=== PATIENT | male | born 1985 | race African-American/Black ===

== ENCOUNTER 2018-10-02 12:37 | Inpatient (IN) | payer OTHER ==
[~2018-10-02] VITALS: Ht 180.3 cm; Wt 86.7 kg
[2018-10-02 13:00] VITALS: BP 124/67
--- NOTE | 2018-10-02 13:00 | NUR ---
ADMISSION NOTES RECEIVED PATIENT DIRECT ADMIT ON MED/SURG FOR CLINICAL [facility]. PATIENT 33Y/OLD MALE. PATIENT A/O X4, NO ACUTE RESPIRATORY DISTRESS, LUNGS ARE CLEAR DURING AUSCULTATION, UNLABORED. V/S TAKEN T-98.2, P-71, R-18, BP-124/67, O2-100 RA. PATIENT STABLE REFUSED HALLUCINATION, REFUSED SI/HI/AVH AT THIS TIME. SKIN ASSESSMENT DONE INTACT. PATIENT AMBULATORY USING BATHROOM. NEEDS ATTENDED AND ANTICIPATED. Dr LOW AWARE OF NEW PATIENT AND MEDICATION. CALL LIGHT WITHIN TO REACH. CONTINUED MONITORING.
[2018-10-02] MEDS ORDERED: ACET-73 PO (15:57)
[2018-10-02] MEDS ORDERED: MAG355OR18 PO (15:57)
[2018-10-02] MEDS ORDERED: MAGN400O21 PO (15:57)
[2018-10-02] MEDS ORDERED: OLAN20TA3 PO (15:57)
[2018-10-02] MEDS ORDERED: IBUP-1953 PO (15:57)
[2018-10-02] MEDS ORDERED: OLAN5TAB3 PO (15:57)
[2018-10-02] MEDS ORDERED: LORA1TAB PO (15:57)
[2018-10-02] MEDS ORDERED: OLAN10TA3 PO (15:57)
[2018-10-02] MEDS ORDERED: ZOLP10TA6 PO (15:57)
[2018-10-02 16:00] VITALS: BP 124/67
[2018-10-02] MEDS ORDERED: IBUPROFEN 200 MG TABLET PO PRN (16:30)
[2018-10-02] MEDS ORDERED: MAG HYDROX/AL HYDROX/SIMETH 30 ML UDC PO PRN (16:30)
[2018-10-02] MEDS ORDERED: MAGNESIUM HYDROXIDE 30 ML UDC PO PRN (16:30)
[2018-10-02] MEDS ORDERED: ACETAMINOPHEN ES 500 MG TABLET PO PRN (16:30)
--- NOTE | 2018-10-02 17:00 | NUR ---
RN NOTES PATIENT IN THE ROOM EATING, INTRODUCED SMOKING SCHEDULE PER UNIT PROTOCOL. PATIENT VERBALIZED UNDERSTANDING. CONTINUED MONITORING.
--- NOTE | 2018-10-02 18:42 | NUR ---
RN NOTES PATIENT STABLE EATING DINNER, NO ACUTE DISTRESS, CALL LIGHT WITHIN TO REACH. SAFETY PRECAUTION MAINTAINED ALL THE TIME. ENDORSED ONCOMING NURSE FOR PLAN OF CARE.
[2018-10-02 20:00] VITALS: BP 122/74
--- NOTE | 2018-10-02 20:00 | NUR ---
MS/RN OPENING NOTES RECEIVED PATIETN IN BED, ABLE TO VERBALIZE NEEDS, ALERT, ORIENTED X3, RESPIRATIONS EVEN AND UNLABORED ON CLINICAL TRIAL AND REQUESTED FOR SLEEP MED AND MEDICATION ORDERED FOR THE NIGHT, ZYPREXA. NO S/S OF CHANGES IN BEHAVIOR, COOPERTAIVE TO CARE, REQUESTED FOR SNACKS, DISCUSSED SMOKKING CESSATION AND STATED MAY CONSIDER, WILL MONITOR AND ATTEND TO PATIENTS NEEDS.
--- NOTE | 2018-10-02 20:20 | NUR ---
MS/RN NOTES PATIENT WITH CONCENT ORDER TO SMOKE AT SCHEDULED TIME, TANK MAKER WOOD ASSISTED PATIENT FOR SAFETY.
[2018-10-02] MEDS ORDERED: ZYPREXA 20 MG PO SCH (22:00)
[2018-10-03] MEDS: ZOLPIDEM TARTRATE 10 MG TABLET PO PRN (00:53)
--- NOTE | 2018-10-03 00:54 | NUR ---
MS/RN NOTES PATIENT REQUESTING FOR SLEEPING PILL UNABLE TO SLEEP.WILL MONITOR.
--- NOTE | 2018-10-03 06:17 | NUR ---
MS/RN NOTES REQUESTED DOUBLE PORTION EVERY MEAL COMMUNICATED WITH DIETARY GRACY, SHOWER REQUEST AND ABLE TO DO SELF CARE WITH SUPERVISION, SMOKE BREAK REQUEST FOLLOW AFTER
--- NOTE | 2018-10-03 06:32 | NUR ---
[id number].RN NOTES RECEIVED PATIENT IN BED, ALERT, ORIENTED, ON CLINICAL TRIAL, BRANNON MONITOR, AMBULATORY , UNABLE TO SLEEP AND HAD PRN MEDICATION, GIVEN WILL MONITOR.
--- NOTE | 2018-10-03 07:24 | NUR ---
MSRN TRIAL. PT RECEIVED IN ELEVATOR RETURNING FROM SCHEDULED SMOKE TIME. PT A&0X3, PT REPORTS FEELING BUGS CRAWLING ON HIS SKIN WHICH IS NORMAL FOR HIM, HE DENIES SI, TSH OR OTHER PSYCHIATRIC SYMPTOMS AT THIS TIME. PT WITHOUT IVC. ROOM CHECKED FOR SAFETY, PT BRIEFED ON POC AND IS WITHOUT CONCERN OR COMPLAINT AT THIS TIME. WILL CONTINUE POC.
[2018-10-03 08:00] VITALS: BP 123/89
[2018-10-03] MEDS: LORAZEPAM 1 MG TABLET FOR AGITATION PO PRN (10:08)
--- NOTE | 2018-10-03 11:00 | NUR ---
MSRN. PT REPORTED ANX, PRN ADMINISTERED WITH GOOD EFFECT, PT RESTING COMFORTABLE.
[2018-10-03 16:00] VITALS: BP 125/75
--- NOTE | 2018-10-03 18:31 | NUR ---
MSRN TRIAL. PT REMAINS A&0X3 RELAXING WITH T.V. PT TOLERATING ROOM AIR AND DENIES PSYCHIATRIC SYMPTOMS, DISTRESS OR DISCOMFORT AT THIS TIME. PT WITHOUT IVC. ROOM CHECKED FOR SAFETY AT EACH CARE INTERACTION. ALL DAY NURSE DUTIES ATTENDED TO AND PT IS WITHOUT CONCERN OR COMPLAINT AT THIS TIME. WILL ENDORSE TO NIGHT NURSE AT BEDSIDE FOR RENEE.
[2018-10-03 20:00] VITALS: BP 116/68
[2018-10-03] MEDS: ZYPREXA 20 MG PO SCH (21:05)
--- NOTE | 2018-10-04 06:13 | NUR ---
MS RN NOTES AWAKE & RESPONSIVE. NOT IN ANY DISTRESS. NO SOB NOTED. DENIES ANY PAIN OR DISCOMFORT AT THIS TIME. PT SLEPT FOR 7 HRS. CALL LIGHT WITHIN REACH. BED IN LOWEST POSITION. SR UP X2 FOR SAFETY. WILL ENDORSE TO NEXT SHIFT.
--- NOTE | 2018-10-04 07:06 | NUR ---
MS RN NOTES PATIENT IN BED ALERT ORIENTED X 3. DENIED ANY PAIN. NO ACUTE DISTRESS NOTED. BREATHING UNLABORED. NO SOB NOTED. SAFETY MEASURES IN PLACE. CALL LIGHT WITHIN REACH. WILL CONTINUE TO MONITOR ACCORDINGLY.
--- NOTE | 2018-10-04 07:06 | NUR ---
MS VIRAJ NOTES PATIENT IN BED ALERT ORIENTED X 3. NO ACUTE DISTRESS NOTED. BREATHING UNLABORED. NO SOB NOTED. IV ACCESS PATENT AND INTACT, NO REDNESS OR SWELLING NOTED. SAFETY MEASURES IN PLACE. CALL LIGHT WITHIN REACH. WILL CONTINUE TO MONITOR ACCORDINGLY. Addendum: 10/04/18 at 1458 by MEGHA DURAN RN disregard above notes, wrong patient
[2018-10-04 09:38] VITALS: BP 138/84
[2018-10-04 16:34] VITALS: BP 122/84
--- NOTE | 2018-10-04 19:00 | NUR ---
MS RN NOTES RECEIVE PT IN BED A/O X 3, NO PAIN AT THIS TIME. IN STABLE CONDITION, NOT IN DISTRESS, SAFETY MEASURES IN PLACE. WILL CONTINUE TO MONITOR. PT FRUSTRATED AT THIS TIME BECUASE HE SAID HE DID GET HIS MAYONNAISE EARLIER. OFFERED HIM IF I COULD GET ANYTHING HE SAID HE'S OK NOW.
--- NOTE | 2018-10-04 19:00 | NUR ---
MS RN NOTES PATIENT IN BED ALERT ORIENTED X 3. NO ACUTE DISTRESS NOTED. BREATHING UNLABORED. NO SOB NOTED.DENIED ANY PAIN.NEEDS ATTENDED AND ANTICIPATED. KEPT CLEAN DRY AND COMFORTABLE.SAFETY MEASURES IN PLACE. CALL LIGHT WITHIN REACH. ENDORSED TO NIGHT NURSE FOR CONTINUITY OF CARE.
[2018-10-04 20:00] VITALS: BP 101/49
[2018-10-04 20:54] VITALS: BP 101/49
[2018-10-04] MEDS: ZYPREXA 20 MG PO SCH (21:11)
--- NOTE | 2018-10-05 06:18 | NUR ---
MS RN CLOSING NOTES REMAINS STABLE. NOT IN DISTRESS. NO PSYCHIATRIC INSTABILITY. KEPT CLEAN AND DRY AND COMFORTABLE, NEEDS ATTENDED AND ANTICIPATED. ON LOW BED AT ALL TIMES TO ENSURE SAFETY. SAFE HAZARD FREE ENVIRONMENT PROVIDED. CALL LIGHT WITHIN EASY TO REACH. WILL ENDORSE NEXT SHIFT CONTINUITY OF CARE.
--- NOTE | 2018-10-05 07:05 | NUR ---
MS RN NOTES PATIENT IN BED ALERT ORIENTED X 3. NO ACUTE DISTRESS NOTED. BREATHING UNLABORED. NO SOB NOTED. DENIED ANY PAIN. SAFETY MEASURES IN PLACE. CALL LIGHT WITHIN REACH. WILL CONTINUE TO MONITOR ACCORDINGLY.
[2018-10-05 08:00] VITALS: BP 129/82
[2018-10-05 16:00] VITALS: BP 132/78
--- NOTE | 2018-10-05 19:00 | NUR ---
MS RN NOTES PATIENT IN BED ALERT ORIENTED X3. NO ACUTE DISTRESS NOTED. BREATHING UNLABORED. NO SOB NOTED. DENIED ANY PAIN AT THIS TIME. DUE MEDICATIONS GIVEN, NO ASE NOTED. NEEDS ATTENDED AND ANTICIPATED. KEPT CLEAN, DRY AND COMFORTABLE. SAFETY MEASURES IN PLACE. CALL LIGHT WITHIN REACH. ENDORSED TO NIGHT NURSE FOR CONTINUITY OF CARE.
--- NOTE | 2018-10-05 19:07 | NUR ---
VIRAJ MS OPENING NOTES RECEIVED PATIENT IN BED AWAKE ALERT AND ORIENTED X4 , RESPIRATIONS EVEN AND UNLABORED WITH EQUAL RISE AND FALL OF CHEST, DENIES ANY PAIN OR DISCOMFORT AT THIS TIME, ORIENTED TO STAFF AND CALL LIGHT, AND KEPT WITHIN REACH, SAFETY PRECAUTIONS IN PLACE, LOW BED AND LOCKED, ALL NEEDS ATTENDED AT THIS TIME, WILL CONTINUE TO MONITOR AND ATTEND TO NEEDS. Addendum: 10/06/18 at 0646 by PRISCILA DEAN RN DUPLICATE DISREGARD
--- NOTE | 2018-10-05 19:10 | NUR ---
RN MS OPENING NOTES RECEIVED PATIENT AWAKE ALERT AND ORIENTED X4, ABLE TO MAKE NEEDS KNOWN, RESPIRATIONS EVEN AND UNLABORED WITH EQUAL RISE AND FALL OF CHEST, DENIES ANY PAIN OR DISCOMFORT AT THIS TIME, NO IV ACCESS MD AWARE, ORIENTED TO STAFF AND CALL LIGHT, FLUIDS AND SNACKS OFFERED, ALL NEEDS ATTENDED AT THIS TIME, WILL CONTINUE TO MONITOR AND ATTEND TO NEEDS.
[2018-10-05 20:00] VITALS: BP 125/69
[2018-10-05] MEDS: ZYPREXA 20 MG PO SCH (21:05)
[2018-10-05] MEDS: ZOLPIDEM TARTRATE 10 MG TABLET PO PRN (21:13)
--- NOTE | 2018-10-05 21:13 | NUR ---
RN MS NOTES PATIENT REQUESTING FOR AMBIEN AMBIEN PRN GIVEN ORDERED WILL CONTINUE TO MONITOR FOR EFFECTIVENESS.
--- NOTE | 2018-10-06 06:46 | NUR ---
VIRAJ MS CLOSING NOTES PATIENT SLEEPING BUT EASILY AROUSABLE ALERT AND ORIENTED X4, ABLE TO MAKE NEEDS KNOWN, RESPIRATIONS EVEN AND UNLABORED WITH EQUAL RISE AND FALL OF CHEST, DENIES ANY PAIN OR DISCOMFORT AT THIS TIME, NO IV ACCESS MD AWARE, CALL LIGHT KEPT WITHIN REACH , FLUIDS AND SNACKS OFFERED, ALL NEEDS ATTENDED AT THIS TIME, WILL CONTINUE TO MONITOR AND ENDORSE TO NEXT SHIFT, PATIENT WAS AWAKE FOR MOST OF THE SHIFT , NOTED FELL ASLEEP AROUND 530AM PATIENT WAS OFFERED ATIVAN FOR ANXIETY AND PATIENT REFUSED STATED " IT WOUND HELP ME ILL BE FINE". Addendum: 10/06/18 at 0651 by PRISCILA DEAN RN NO SI/HI.
[2018-10-06 08:00] VITALS: BP 128/88
--- NOTE | 2018-10-06 08:00 | NUR ---
RN NOTES RECEIVED PATIENT IN THE HALLWAY, A/O X4, PATIENT WANTED TO GO FOR SMOKING. PATIENT STABLE HAS NO ACUTE RESPIRATORY DISTRESS, V/S STABLE. PATIENT DENIED SI/HI AT THIS TIME, NO COMPACTING OF PAIN. PATIENT STATE 'HE DOES NOR SLEPT MOST OF THE NIGHT TIME AND NOT FEEL SLEEPY NOW". SAFETY PRECAUTION MAINTAINED ALL THE TIME.
[2018-10-06 16:00] VITALS: BP 130/62
[2018-10-06] MEDS: LORAZEPAM 1 MG TABLET FOR AGITATION PO PRN (17:21)
--- NOTE | 2018-10-06 17:21 | NUR ---
RN NOTES PATIENT ANXIOUS AT THIS TIME BECAUSE OF NOT HAVING CIGARETTE, IRRITABLE, AND NOT GET ENOUGH SLEEP LAST NIGHT. PATIENT DECIDED TO GO HOME , AND PATIENT STATE " I DO NOT NEED CLINICAL TRIAL NOW". CALLED DR LOW AND NOTIFIED ABOUT PATIENT CONDITION. Dr. LOW SPOKE TO THE PATIENT BY PHONE AND PATIENT AGREES TO STAY. GET VERBAL TO ORDER GIVE PATIENT ATIVAN NOW PRESCRIBED, AND TAKE HIM TO OUTSIDE TO SMOKE. ORDER TAKEN AND CARRIED OUT.
--- NOTE | 2018-10-06 17:21 | NUR ---
RN NOTES ADMINISTERED ATIVAN 1 MG PO PRN PRESCRIBED, V/S TAKEN BP-130/62, P-70. ENCOURAGED PATIENT TO EXPRESS FEELINGS AND CONCERNS. SAFETY PRECAUTION MAINTAINED ALL THE TIME.
--- NOTE | 2018-10-06 18:30 | NUR ---
RN NOTES PATIENT STABLE, MEDICATION WERE ADMINISTERED FOR ANXIETY EFFECTIVE, V/S STABLE. PATIENT COOPERATIVE, REDIRECTABLE. ENDORSED ONCOMING NURSE FOR PLAN OF CARE.
--- NOTE | 2018-10-06 19:40 | NUR ---
RN MS OPENING NOTES RECEIVED PT SITTING UP IN CHAIR, TALKING TO FRIEND, PT IS ALERT ORIENTED X4. BREATHING EVEN AND UNLABORED ON RA, IN NO APPARENT DISTRESS, NO COMPLAINT OF PAIN OR DISCOMFORT. PT PART OF CLINICAL TRIAL, NO UV ACCESS. SKIN REMAINS INTACT. BED LINENS CHANGED, LOWEST LOCKED POSITION, CALL LIGHT WITHIN REACH AT ALL TIME. WILL CONTINUE TO MONITOR
[2018-10-06 20:00] VITALS: BP 127/76
[2018-10-06] MEDS: ZYPREXA 20 MG PO SCH ×2 (22:00→22:12)
[2018-10-06] MEDS ORDERED: OLANZAPINE 5 MG TABLET ONE (22:30)
[2018-10-06] MEDS: ZOLPIDEM TARTRATE 10 MG TABLET PO PRN (22:35)
--- NOTE | 2018-10-07 06:09 | NUR ---
RN MS CLOSING NOTES. PT REMAINS IN BED, SLEEPING, EASILY AROUSED TO NAME CALL, BREATHING EVEN AND UNLABORED ON ROOM AIR, NO SOB OR CONGESTION. NO IV ACCESS, PT ON CLINICAL TRIAL. NO SIGNIFICANT CHANGE IN CONDITION DURING SHIFT. BED IN LOWEST LOCKED POSITION, CALL LIGHT WITHIN REACH AT ALL TIMES. WILL ENDORSE TO DAY NURSE FOR RENEE
--- NOTE | 2018-10-07 07:25 | NUR ---
RN OPENING NOTE PATIENT IS ALERT AND ORIENTED x4. NO FACIAL GRIMACING NOTED FOR PAIN. NO SOB OR DISTRESS NOTED ON ROOM AIR TOLERATING WELL. ABLE TO COMMUNICATE NEEDS. NO IV ACCESS PER MD. BRP. REGULAR DIET. NO LABS THIS MORNING. CALL LIGHT WITHIN REACH. SAFETY MEASURES IMPLEMENTED. WILL CONTINUE CARE
[2018-10-07 08:00] VITALS: BP 130/86
--- NOTE | 2018-10-07 08:26 | NUR ---
RN NOTE PATIENT WENT DOWN FOR SMOKE BREAK WITH OPERATING TABLE ASSEMBLER AT THIS TIME. WILL CONTINUE CARE WHEN PATIENT RETURNS TO UNIT
--- NOTE | 2018-10-07 08:40 | NUR ---
MS RN NOTE PATIENT BACK FROM SMOKE BREAK AND RETURNED TO UNIT WITH SCALEMAN. CURRENTLY IN ROOM AT [facility] UNIT TIME. WILL CONTINUE TO MONITOR
--- NOTE | 2018-10-07 10:30 | NUR ---
MS RN NOTE PATIENT WENT OUT FOR SMOKE BREAK WITH DISASTER RESPONSE DIRECTOR. WILL CONTINUE CARE WHEN PATIENT RETURNS TO UNIT
--- NOTE | 2018-10-07 10:40 | NUR ---
MS RN NOTE PATIENT BACK FROM SMOKE BREAK. IN ROOM IN BED AT THIS TIME
[2018-10-07 16:00] VITALS: BP 131/72
--- NOTE | 2018-10-07 18:39 | NUR ---
RN CLOSING NOTE PATIENT IS ALERT AND ORIENTED x4. NO FACIAL GRIMACING NOTED FOR PAIN. NO SOB OR DISTRESS NOTED ON ROOM AIR TOLERATING WELL. ABLE TO COMMUNICATE NEEDS. NO IV ACCESS PER MD. BRP. REGULAR DIET.CALL LIGHT WITHIN REACH AT ALL TIMES. SAFETY MEASURES IMPLEMENTED. WILL ENDORSE TO HARNESSMAKER APPRENTICE NURSE FOR RENEE
--- NOTE | 2018-10-07 19:16 | NUR ---
MS RN OPENING NOTES: RECEIVED PT ON ROOM AIR AND IS TOLERATING WELL. NO SOB NOTED. NO S/S OF DISTRESS. PT HAS NO IV ACCESS PER MD ORDER. PT ANTICIPATING FOR A SMOKE BREAK. BED KEPT IN LOW, LOCKED POSITION, AND SIDE RAILS X 2UP. WILL CONTINUE TO MONITOR PT.
[2018-10-07 20:00] VITALS: BP 130/73
--- NOTE | 2018-10-07 20:10 | NUR ---
MS RN NOTES: PT WENT DOWN FOR SMOKE BREAK WITH MAYE CARRANZA.
--- NOTE | 2018-10-07 20:23 | NUR ---
RN NOTES: PT BACK FROM SMOKE BREAK.
--- NOTE | 2018-10-07 20:52 | NUR ---
RN NOTES: NON ADMIN 10/07 ZYPREXA SINCE NOT FOR MY SHIFT. WILL ADMIN 10/07 DOSE.
[2018-10-07] MEDS: ZYPREXA 20 MG PO SCH (21:05)
[2018-10-07] MEDS: ZOLPIDEM TARTRATE 10 MG TABLET PO PRN (23:04)
--- NOTE | 2018-10-07 23:04 | NUR ---
MS RN NOTES: PT REQUESTED FOR SLEEPING AID. PT WAS ADMINISTERED AMBIEN 10MG PO. WILL CONTINUE TO MONITOR FOR SLEEP.
--- NOTE | 2018-10-08 06:57 | NUR ---
MS RN CLOSING NOTES: ALL NEEDS WERE ATTENDED AND ANTICIPATED FOR. PT ASLEEP AT THIS TIME. PT RESTING COMFORTABLY IN BED. NO IV ACCESS NOTED PT IS A CLINICAL TRIAL. BED KEPT IN LOW, LOCKED POSITION, AND SIDE RAILS X 2UP. WILL ENDORSE TO AM NURSE FOR RENEE.
--- NOTE | 2018-10-08 07:55 | NUR ---
MS RN RECEIVED ON BED, AWAKE,ALERT,ORIENTED X4,A CLINICAL TRAIL PATIENT, DENIES PAIN AT THIS TIME, WILL MONITOR PATIENT'S CONDITION.
[2018-10-08 08:00] VITALS: BP 120/83
--- NOTE | 2018-10-08 09:00 | NUR ---
MS RN DOUBLE PORTION AND EXTRA TRAY SERVED TOLERATED WELL.NO DUE MEDS TO BE GIVEN AT THIS TIME.
[2018-10-08 16:00] VITALS: BP 126/68
--- NOTE | 2018-10-08 18:00 | NUR ---
MS RN ON BED, EATING DINNER,TO RESUME MEDS IN AM,NO DISTRESS NOTED.
--- NOTE | 2018-10-08 19:30 | NUR ---
RECEIVED PATIENT IN BED AWAKE. AO X 3, NO ACUTE DISTRESS NOTED. DENIES ANY PAIN AT THIS TIME. CALM AT THIS TIME. SAFETY REMINDERS GIVEN. ON LOW BED WITH BILATERAL UPPER SIDE RAILS UP. CALL FAUSTIN WITHIN EASY REACH. WILL CONTINUE TO MONITOR.
[2018-10-08 20:00] VITALS: BP 132/83
[2018-10-08] MEDS: ZOLPIDEM TARTRATE 10 MG TABLET PO PRN (20:57)
--- NOTE | 2018-10-09 06:00 | NUR ---
PATIENT ASLEEP, EASILY AROUSABLE. RESPIRATIONS EVEN. NO SIGNS OF PAIN NOTED. NEEDS ATTENDED. SAFETY PRECAUTIONS AND COMFORT MEASURES IN PLACE. WILL GIVE REPORT TO DAY SHIFT FOR CONTINUITY OF CARE.
--- NOTE | 2018-10-09 09:00 | NUR ---
PRINTER SLOTTER FEEDER PATIENT ANXIOUS AND UPSET, CALLED DR. LOW'S OFFICE AND STATED HE WANTS TO LEAVE. PATIENT REFUSED ANY PAPERWORKS OR EXITCARE AT THIS TIME. REFUSED TO TAKE BACK MEDICATION THAT WAS KEPT IN PHARMACY, PER PATIENT, I HAVE PLENTY OF MEDICATIONS AT HOME, I DONT NEED IT. EXPLAINED RISKS AND BENEFITS. CALLED DR. LOW'S OFFICE AND ARE AWARE OF PATIENT'S PLAN TO LEAVE. RECEIVED A CALL BACK FROM DR. LOW AND GAVE AN ORDER FOR DISCHARGED TO HOME. REFUSED SKIN ASSESSMENT, PATIENT STATED HE'S IN A HAGAN TO LEAVE. BELONGINGS RECONCILED AND COMPLETE. PATIENT LEFT THE FACILITY IN STABLE CONDITION.
[2018-10-09 09:16] VITALS: BP 133/84
--- NOTE | 2018-10-09 10:44 | NUR ---
MEDICATIONS GIVEN TO DR. LOW FIELD SERVICES MANAGER.
[2018-10-09] MEDS ORDERED: LORAZEPAM 1 MG TABLET FOR AGITATION PO PRN (12:00)
[2018-10-09] MEDS ORDERED: INVESTIGATIONAL MED RGH-MD-24 1 CAP PO SCH (17:00)
== END 2018-10-09 09:00 | disposition home or self-care (01) | DRG 951 ==
LOC: MED 12:37
PROVIDERS: ADMIT Psychiatry & Neurology Psychiatry; ATTEND Psychiatry & Neurology Psychiatry
DX: Z00.6 Encounter for examination for normal comparison and control in clinical research program (principal); F20.0 Paranoid schizophrenia; J45.909 Unspecified asthma, uncomplicated; G47.00 Insomnia, unspecified
CPT/HCPCS: 87081-TC; G0378

== ENCOUNTER 2025-03-31 00:30 | Emergency (ER) | payer MEDICAID, OTHER ==
[~2025-03-31 00:30] MED LIST: ACET-73 PO; IBUP-1953 PO; LORA1TAB PO; MAG355OR18 PO; MAGN400O21 PO; OLAN10TA3 PO; OLAN20TA3 PO; OLAN5TAB3 PO; ZOLP10TA6 PO
== END 2025-03-31 01:21 | disposition left against medical advice (07) ==
LOC: ER 00:31
DX: Z76.89 Persons encountering health services in other specified circumstances (principal); Z53.21 Procedure and treatment not carried out due to patient leaving prior to being seen by health care provider

== ENCOUNTER 2025-06-20 00:29 | Emergency (ER) | payer MEDICAID ==
[~2025-06-20] VITALS: Ht 185.4 cm; Wt 88.5 kg
[2025-06-20] MEDS ORDERED: CEFTRIAXONE 500 MG VIAL ONE (01:02)
[2025-06-20] MEDS ORDERED: AZITHROMYCIN 250 MG TABLET ONE (01:03)
[2025-06-20] MEDS ORDERED: METRONIDAZOLE 500 MG TABLET ONE (01:03)
[2025-06-20] MEDS: AZITHROMYCIN 250 MG TABLET PO ONE (01:15)
[2025-06-20] MEDS: CEFTRIAXONE 500 MG VIAL IM ONE (01:15)
[2025-06-20] MEDS: METRONIDAZOLE 500 MG TABLET PO ONE (01:15)
[2025-06-20 01:17] LABS: APPEARANCE,URINE CLEAR (CLEAR); BLOOD, URINE NEGATIVE Ery/uL (NEGATIVE); LEUKOCYTE ESTERASE ,URINE NEGATIVE (NEGATIVE); NITRITE, URINE NEGATIVE (NEGATIVE); UGLUCOSE NEGATIVE (NEGATIVE)
[2025-06-20 01:49] VITALS: BP 133/70; TEMP 98.4; O2SAT 98
[2025-06-23 11:33] LABS: CHLAMYDIA TRACHOMATIS NAA Negative (Negative); NEISSERIA GONORRHOEAE NAA Negative (Negative)
== END 2025-06-20 01:50 | disposition home or self-care (01) ==
LOC: ER 00:35
DX: Z20.2 Contact with and (suspected) exposure to infections with a predominantly sexual mode of transmission (principal); F17.200 Nicotine dependence, unspecified, uncomplicated; Z60.2 Problems related to living alone; Z79.899 Other long term (current) drug therapy
CPT/HCPCS: 87491; 87591; J0696